=== PATIENT | male | born 1980 | race Caucasian/White ===

== ENCOUNTER 2017-05-27 02:45 | Emergency (ER) | payer OTHER ==
[~2017-05-27] VITALS: Ht 185.4 cm; Wt 99.8 kg
--- NOTE | 2017-05-27 05:23 | NUR ---
PT AMBULATORY TO ER BED 2. PT BIB SELF C/O L EYE PAIN DUE GETTING "HAY IN HIS EYE" X 8 HRS AGO. PT PLACED ON RECOVERY ADVOCATE. VSS/RESP EVEN UNLABORED/NAD NOTED/SKIN WARM AND DRY/DENIES N-V-D/ AFEBRILE/AOX4. AWAITING MD CLEARY.
[2017-05-27] MEDS ORDERED: FLUORESCEIN SODIUM OPHTH 1 EA STRIP ONE (06:09)
[2017-05-27] MEDS ORDERED: TETRACAINE HCL/PF 0.5% UD 2 ML BOTTLE ONE (06:09)
[2017-05-27] MEDS ORDERED: FLUORESCEIN SODIUM OPHTH 1 EA STRIP OP ONE (06:30)
[2017-05-27] MEDS ORDERED: TETRACAINE HCL/PF 0.5% UD 2 ML BOTTLE EACHEYE ONE (06:30)
--- NOTE | 2017-05-27 06:59 | NUR ---
MORGANS LENS TO L EYE TO IRRIGATE WITH NS PER MD ORDERS.
--- NOTE | 2017-05-27 07:24 | NUR ---
Patient discharged to home in stable condition. Written and verbal after care instructions given. Patient verbalizes understanding of instruction. Patient ambulatory with a steady gait.
[2017-05-27 07:26] VITALS: BP 114/63
== END 2017-05-27 07:28 | disposition home or self-care (01) ==
LOC: ER 02:48
DX: G57.12 Meralgia paresthetica, left lower limb (principal); H10.32 Unspecified acute conjunctivitis, left eye
CPT/HCPCS: 99284; A4606; J7030; Z7610